=== PATIENT | female | born 1965 | race Caucasian/White ===

== ENCOUNTER 2024-03-15 14:54 | Emergency (ER) | payer OTHER, SELFPAY ==
[2024-03-15 14:55] VITALS: BP 159/73; PULSE 62; RESP 15; TEMP 36.2; O2SAT 97; BMI 29.2
--- NOTE | 2024-03-15 15:08 | VDLE_ITS ---
Reason For Study: LLE Swelling RIGHT LEFT FV is compressible, spontaneous, phasic, GSV is normal. competent and demonstrates normal CFV is compressible, spontaneous, phasic, augmentation. competent, and demonstrates normal Procedure augmentation. This is a venous duplex using B-mode, color FV is compressible, spontaneous, phasic, flow and spectral Doppler. competent and demonstrates normal Exam performed portable in ED. augmentation. The exam was diagnostic. POP V is compressible, spontaneous, phasic, A preliminary report was called and/or faxed competent and demonstrates normal to ED psychiatric orderly Pepper. augmentation. T/P Trunk is compressible. PTV is compressible. LT PerV is compressible. VL/Venous Duplex US, Unilateral Interpretation Summary Deep veins of the left lower extremity are patent and compressible segmentally. There is no evidence of left lower extremity deep vein thrombosis. The left great saphenous vein akua ears patent and compressible segmentally. Ordering Physician: Thanh Omalley Referring Physician: Lamonte Dowell M.D. Performed By: Prasad Castro RVT
--- NOTE | 2024-03-15 15:09 | ED.VIS.LOWEX ---
HPI History of Present Illness Chief Complaint: Lower Extremity Injury Narrative Narrative: 58-year-old female presenting with left lower extremity edema. She states it has been like this for about 3 days. Patient does states she has history of provoked blood clot in the right lower extremity secondary to fracture. She has traveled recently by car about 3 hours to [facility] and she also had a flight to [place] in the last couple of weeks. No other risk factors for DVT currently. Patient states it is not painful. PFSH PFSH Medical History History of DVT (deep vein thrombosis) Tobacco abuse GERD (gastroesophageal reflux disease) Pure hypercholesterolemia Paroxysmal atrial fibrillation Home Medications ?Medication ?Instructions ?Recorded ?Last Taken ?Type aspirin 81 mg tablet,delayed 81 mg PO DAILY 07/04/19 Unknown History release (Adult Low Dose Aspirin) famotidine 20 mg tablet (Pepcid AC) 20 mg PO DAILY PRN Reflux 02/04/23 Unknown History atenolol 25 mg tablet 25 mg PO DAILY #90 tabs 12/27/23 Unknown Rx atorvastatin 40 mg tablet 40 mg PO QHS cholesterol 03/15/24 Unknown History Allergy/AdvReac Type Severity Reaction Status Date / Time No Known Allergies Allergy Verified 03/15/24 14:57 Family History Father CAD (coronary artery disease) Grandmother Heart disease Surgical History History of inguinal hernia repair History of ankle surgery History of hysterectomy (~2010) Social History Smoking Status: Former smoker alcohol intake: current alcohol intake frequency: holidays/special occasions only details: rare substance use type: does not use caffeine: Yes Type: carbonated beverages and coffee ROS ROS ED Constitutional Constitutional ED: Denies chills, fever(s) or sweats Eyes Eyes: Denies blurry vision or change in vision ENT ENT ED: Denies ear pain or sore throat Cardiovascular Cardiovascular: Denies chest pain, palpitations or racing heartbeat Respiratory/Chest Respiratory/Chest: Denies cough, dyspnea or sputum Gastrointestinal Gastrointestinal: Denies abdominal pain, constipation, diarrhea, nausea or vomiting Genitourinary Genitourinary ED: Denies dysuria, hematuria or urinary frequency Musculoskeletal Musculoskeletal: Reports other Details: Left lower extremity edema ; Denies arthralgias, myalgias or neck pain Integumentary Reports other; Denies abscess, Abrasions or rash Neurologic Neurologic: Denies headache(s), paresthesias or weakness Psychiatric Psychiatric: Denies anxiety, depression, suicidal ideation or suicidal thoughts Endocrine Endocrinology: Denies polydipsia or polyuria EXAM Physical Exam Const Vital Signs: 03/15/24 14:55 Temperature 97.2 F L Temperature Source Temporal Pulse Rate 62 Respiratory Rate 15 Blood Pressure 159/73 H Blood Pressure Mean 101 Pulse Ox 97 Oxygen Delivery Method Room Air Positive well nourished General Appearance ED: NAD HEENT normocephalic Eyes PERRL Resp normal respiratory effort Cardio regular rate and regular rhythm Extremity Extremity Narrative: Left lower extremity edema from the left foot up into the mid left calf. No tenderness to palpation. Neurovascular intact. No cords palpated. Pedal pulses 2+. Neuro oriented x3 and CN's II-XII intact bilaterally Sensorium / Orientation: alert Psych mental status grossly normal MDM MDM MDM Narrative Medical decision making narrative: Patient presenting with left lower extremity edema and concern for DVT. Will obtain a duplex of the left lower extremity. Duplex of the lower extremities negative. Patient counseled to wear compression, ice, elevate. Precautions discussed. Follow-up with PCP to ensure resolution. Impression: 1. Left lower extremity edema Lab Data Attestation: I reviewed the patient's lab results. Discharge Plan Triage Chief Complaint: Lower Extremity Injury ED Provider: Thanh Omalley Dx/Rx/DC Orders Instructions: ED Peripheral Edema, Unilateral Prescriptions: No Action aspirin [Adult Low Dose Aspirin] 81 mg tablet,delayed release (DR/EC) 81 mg PO DAILY famotidine [Pepcid AC] 20 mg tablet 20 mg PO DAILY PRN (Reason: Reflux) atorvastatin 40 mg tablet 40 mg PO QHS atenolol 25 mg tablet 25 mg PO DAILY Qty: 90 3RF Primary Care Provider: Lamonte Dowell Referrals: Lamonte oDwell MD [Primary Care Provider] - Print Language: Romanian Disposition Disposition: Home, Self Care
[2024-03-15 16:17] VITALS: BP 156/89; PULSE 69; RESP 17; TEMP 36.6; O2SAT 99
== END 2024-03-15 16:18 | disposition home or self-care (01) ==
PROVIDERS: Emergency Provider Student in an Organized Health Care Education/Training Program; PCP Internal Medicine; Visit Provider Student in an Organized Health Care Education/Training Program
DX: R60.0 Localized edema (principal); I48.0 Paroxysmal atrial fibrillation; E78.00 Pure hypercholesterolemia, unspecified; K21.9 Gastro-esophageal reflux disease without esophagitis; Z79.82 Long term (current) use of aspirin; Z79.899 Other long term (current) drug therapy; Z87.891 Personal history of nicotine dependence; Z86.718 Personal history of other venous thrombosis and embolism
CPT/HCPCS: 93971; 99282

== ENCOUNTER → 2024-08-08 | Outpatient (CLI) | payer OTHER, SELFPAY ==
--- NOTE | 2024-08-08 12:57 | CT_ITS ---
STUDY: CT CHEST WITH T WITHOUT CONTRAST REASON FOR EXAM: Female, 58 years old. Abnormal electrocardiogram CHEST PAIN limited chest over read only RADIATION DOSAGE (If Supplied By Facility): CTDIvol = ( 24.50 ) mGy, DLP = ( 1305.58 ) mGycm TECHNIQUE: Transaxial imaging was performed pre-and post contrast administration of 75mL Isovue 270. Individualized dose optimization techniques were used for this CT. COMPARISON: None. FINDINGS: Mild degree of increased linear markings at the lung bases suggestive of mild atelectasis and/or scarring. There is no demonstrated pleural abnormality. Normal heart and pericardium. Coronary artery calcification is seen. Calcified lymph nodes in the aortopulmonary window. Calcified left hilar lymph nodes. Normal enhanced and unenhanced pulmonary arteries. Normal aorta arch and descending thoracic aorta. Calcified splenic granulomas. There is no demonstrated abnormality of the visualized upper abdomen. CT/Limited Chest CT Cardiac Only IMPRESSION: Coronary artery calcification. Electronically Signed: Michael Boyce MD at 13:47 EST ,
--- NOTE | 2024-08-08 12:57 | ECHOD_ITS ---
Reason For Study: ABNORMAL EKG Procedure This was a 2D Doppler, Color Flow transthoracic echocardiogram. Exam performed in department. Left Ventricle Normal LV size. The left ventricular ejection fraction is 65 %. No regional wall motion abnormalities noted. Right Ventricle Normal RV size. Normal systolic function. Atria Normal left atrium. Normal right atrium. Mitral Valve Normal mitral valve. Tricuspid Valve Normal tricuspid valve. Mild tricuspid valve insufficiency. Pulmonary artery systolic pressure is 28 mmHg. Aortic Valve Trisinus/trileaflet aortic valve. Mild focal aortic valve calcification. Pulmonic Valve Normal pulmonic valve. Great Vessels Normal aortic root. The pulmonary artery is normal size. Inferior vena cava collapse with respiration. Pericardium/Pleural No pericardial effusion. MMode/2D Measurements & Calculations LVIDd: 4.6 cm IVSd: 1.1 cm LVOT diam: 2.0 cm LVIDs: 2.5 cm LVPWd: 0.92 cm LVOT area: 3.1 cm2 RVDd: 3.4 cm FS: 45.8 % asc Aorta Diam: 3.2 cm LAV(MOD-bp): 37.3 ml LVAd ap4: 19.3 cm2 LAV(MOD-bp) Indexed: 20.7 ml/m2 LVLd ap4: 6.2 cm LAV(MOD-sp2): 37.3 ml EDV(MOD-sp4): 50.0 ml LAV(MOD-sp4): 36.2 ml EDV(sp4-el): 50.6 ml LVAs ap4: 9.7 cm2 LVLs ap4: 5.2 cm ESV(MOD-sp4): 15.5 ml ESV(sp4-el): 15.3 ml EF(MOD-sp4): 69.1 % EF(sp4-el): 69.7 % LVAd ap2: 17.7 cm2 SV(MOD-sp4): 34.6 ml SV(MOD-sp2): 27.3 ml LVLd ap2: 6.3 cm SI(MOD-sp4): 19.2 ml/m2 SI(MOD-sp2): 15.1 ml/m2 EDV(MOD-sp2): 41.4 ml EDV(sp2-el): 42.1 ml LVAs ap2: 9.3 cm2 LVLs ap2: 5.2 cm ESV(MOD-sp2): 14.2 ml ESV(sp2-el): 14.1 ml EF(MOD-sp2): 65.8 % SV(sp4-el): 35.3 ml Ao sinus diam: 3.[address] Junction: 2.4 cm LA dimension(2D): 3.8 cm LA A4 area: 15.1 cm2 RA A4 area: 12.6 cm2 TAPSE: 1.9 cm Time Measurements MV dec time: 0.17 sec Doppler Measurements & Calculations MV E max kwadwo: 83.3 cm/sec Med Peak E' Kwadwo: 8.1 cm/sec MV dec slope: 485.2 cm/sec2 MV A max kwadwo: 66.6 cm/sec E/E' med: 10.3 MV E/A: 1.3 Ao V2 max: 109.8 cm/sec LV V1 max: 84.8 cm/sec SV(LVOT): 62.5 ml Ao max P.8 mmHg LV V1 max P.9 mmHg Ao V2 mean: 83.5 cm/sec LV V1 mean P.5 mmHg Ao mean P.0 mmHg LV V1 mean: 57.6 cm/sec Ao V2 VTI: 27.6 cm LV V1 VTI: 20.0 cm AV (velocity ratio): 0.72 ROSELIA(I,D): 2.3 cm2 ROSELIA(V,D): 2.4 cm2 PA V2 max: 66.7 cm/sec PI end-d kwadwo: 83.3 cm/sec TR max kwadwo: 247.4 cm/sec TR max P.5 mmHg ECHO/Echo Complete Interpretation Summary The left ventricular ejection fraction is 65 %. Normal LV size. Pulmonary artery systolic pressure is 28 mmHg. Structurally normal valves. Ordering Physician: Arsalan Martínez Referring Physician: Lamonte Dowell M.D. Performed By: Magdalena Bear RDCS
[2024-08-08 13:18] LABS: Cholesterol 178 mg/dL (200); High Density Lipoprotein 49 mg/dL; Triglycerides 205 mg/dL; Very Low Density Lipoprotein 41 mg/dL (5-40)
[2024-08-08 13:32] VITALS: BP 133/75; PULSE 52; RESP 16; TEMP 36.7; O2SAT 99; BMI 32.3
[2024-08-08 13:46] VITALS: BP 133/75; PULSE 58
[2024-08-08] MEDS: Nitroglycerin SL (ED/IMG/CATH) 0.4 MG TABLET SL (13:46)
[2024-08-08 13:51] VITALS: BP 111/65; PULSE 65; RESP 16; O2SAT 97
[2024-08-08 13:55] LABS: CREATININE FINGERSTICK < 1.0 mg/dL (0.55-1.02); EGFR FINGERSTICK > 60.0000 mL/min (>60)
--- NOTE | 2024-08-08 14:04 | NURSING ---
IV remains in place for pt's echo appt.
--- NOTE | 2024-08-08 18:20 | CCTA.WCONT ---
CCTA w/Cont Coronary Arteries Date of Study:: 08/08/24 Chest pain abnormal EKG Coronary Calcium Scoring: High-resolution Computed Tomographic imaging of the chest was performed on [08/08/2024], with particular attention paid to the coronary arteries. Intravenous contrast agent was administered per protocol and images reconstructed and displayed. LEFT MAIN CORONARY ARTERY: Arose from the left coronary cusp and was noted to have moderate calcification with a coronary calcium score of 166. [] LEFT ANTERIOR DESCENDING CORONARY ARTERY: Arose from the left main coronary artery. There was proximal calcification eccentric as well as mid segment calcification and narrowing at least moderate in severity. The distal vessel was noted to be relatively small. The coronary calcium score was noted to be 199 [] LEFT CIRCUMFLEX CORONARY ARTERY: Codominant vessel with multiple areas of calcification in the proximal and mid segment with moderate eccentric stenosis no high-grade stenosis present. Coronary calcium score of 240 [] RIGHT CORONARY ARTERY: Codominant small vessel with no significant obstructive plaque noted and no coronary calcification present [] THORACIC AORTA: [] PULMONARY ARTERY: [] LEFT ATRIUM/APPENDAGE: [] MITRAL VALVE: [] AORTIC VALVE: [] LEFT VENTRICLE: [] CORONARY CALCIUM SCORE: Total coronary Agatston score of 605 placing the patient at greater than 90th percentile Conclusion: Coronary CTA with a total calcium score of 605 suggesting high likelihood of at least 1 significant coronary artery disease territory likely the left circumflex artery with more than 50% stenosis present elevated coronary calcium score. []
== END | disposition home or self-care (01) ==
PROVIDERS: PCP Internal Medicine; Referring Provider Internal Medicine Cardiovascular Disease; Visit Provider Internal Medicine Cardiovascular Disease
DX: Z01.812 Encounter for preprocedural laboratory examination (principal); I48.0 Paroxysmal atrial fibrillation; E78.00 Pure hypercholesterolemia, unspecified; I10 Essential (primary) hypertension; R94.31 Abnormal electrocardiogram [ECG] [EKG]; R07.9 Chest pain, unspecified
CPT/HCPCS: 36415; 75571; 75574; 76380; 80061; 93306; Q9967

== ENCOUNTER → 2024-08-29 | Outpatient (CLI) | payer OTHER, SELFPAY ==
--- NOTE | 2024-09-04 08:51 | STRESSREP ---
Stress Test Report Date: 08/29/2024 Procedure: Pharmacologic stress nuclear imaging study Indications: Chest pain Consent: Per the patient Procedure: The patient underwent pharmacologic (Regadenoson 0.4mg ) evaluation with a peak heart rate of 98 beats per minute (61%predicted maximal heart rate) and a peak blood pressure of 145/67 mmHg. The baseline ECG demonstrated sinus rhythm with nonspecific ST changes. The peak pharmacologic ECG demonstrated no diagnostic changes secondary to baseline abnormality. There were no cardiac dysrhythmias pretest, during pharmacologic infusion, or recovery. There was no complaint of chest discomfort during pharmacologic infusion or recovery. The patient was injected with 10.8 millicuries of technetium 99m Cardiolite and subsequently rest SPECT Cardiolite nuclear imaging was obtained in the horizontal long, vertical long, and short axis views. The patient underwent pharmacologic (Regadenoson) evaluation. The patient was injected with 33.2 millicuries of technetium 99m Cardiolite and subsequently stress SPECT Cardiolite nuclear imaging was obtained in the horizontal long, vertical long, and short axis views. A gated Cardiolite study at peak stress was obtained. The examination was stopped secondary to completion of protocol. Rest and stress SPECT Cardiolite nuclear imaging status post realignment, normalization, and attenuation correction demonstrate no fixed or reversible perfusion defects. There is end systolic thickening and brightening. The gated Cardiolite study demonstrates myocardial thickening and inward wall motion. The reported LVEF is 85%. Impression: 1. Pharmacologic (Regadenoson) evaluation 2. Peak pharmacologic ECG with no diagnostic changes. 3. There were no cardiac dysrhythmias pretest, during pharmacologic infusion, or recovery. 5. Rest and stress SPECT Cardiolite nuclear imaging demonstrate relative uniform tracer uptake and myocardial perfusion appearing within normal limits. 6. The gated Cardiolite study reports an LVEF of 85%. This note was generated with [employer] software. It may contain incorrect words, spelling, and punctuation that were not noted in checking the note before signing.
== END | disposition home or self-care (01) ==
LOC: CVS 06:57
PROVIDERS: PCP Internal Medicine; Referring Provider Physician Assistant Medical; Visit Provider Physician Assistant Medical
DX: I25.10 Atherosclerotic heart disease of native coronary artery without angina pectoris (principal); R07.9 Chest pain, unspecified; R53.83 Other fatigue
CPT/HCPCS: 78452; 93017; A9500; A4216; J2785

== ENCOUNTER → 2025-01-12 | Outpatient (CLI) | payer OTHER, SELFPAY ==
[2025-01-12 12:11] LABS: Anion Gap 10 (5-15); BUN 8 mg/dL (4-19); Calcium,Total 9.6 mg/dL (7.6-11.0); Carbon Dioxide 27.3 mmol/L (21.0-32.0); Chloride 100 mmol/L (98-108); Creatinine, Serum 0.81 mg/dL (0.70-1.20); EST Glomerular Filtration Rate 83 (>60); Glucose 93 mg/dL (70-99); Potassium 4.4 mmol/L (3.3-5.1); Sodium Level 138 mmol/L (133-145)
== END | disposition home or self-care (01) ==
LOC: LAB 10:41
PROVIDERS: PCP Internal Medicine; Referring Provider Internal Medicine Cardiovascular Disease; Visit Provider Internal Medicine Cardiovascular Disease
DX: I10 Essential (primary) hypertension (principal)
CPT/HCPCS: 36415; 80048